=== PATIENT | female | born 1970 | race Hispanic/Latino ===

== ENCOUNTER → 2018-02-17 | Outpatient (CLI) | payer OTHER | END | disposition home or self-care (01) | LOC: OIH 10:03 | PROVIDERS: ATTEND Internal Medicine | DX: M79.604 Pain in right leg (principal); G57.41 Lesion of medial popliteal nerve, right lower limb | CPT/HCPCS: 73590 ==

== ENCOUNTER → 2021-03-17 | Outpatient (CLI) | payer BC | END | disposition home or self-care (01) | LOC: OIH 14:31 | PROVIDERS: ATTEND Internal Medicine | DX: M47.22 Other spondylosis with radiculopathy, cervical region (principal); M62.838 Other muscle spasm | CPT/HCPCS: 72040 ==